=== PATIENT | male | born 1945 | race Caucasian/White ===

== ENCOUNTER → 2018-02-11 | Outpatient (CLI) | payer OTHER, BC | LOC: CIMAGING 16:25 | PROVIDERS: ATTEND Registered Nurse | DX: R05 Cough (principal); J98.11 Atelectasis; J98.6 Disorders of diaphragm | CPT/HCPCS: 71046-PO ==

== ENCOUNTER 2018-02-14 14:26 | Emergency (ER) | payer OTHER, BC ==
[2018-02-14 14:52] VITALS: RESP 16
--- NOTE | 2018-02-14 15:14 | EDPHY ---
H & P Stated Complaint: cough Time Seen by Provider: 02/14/18 14:57 HPI/ROS: CHIEF COMPLAINT: Cough, runny nose, fever HISTORY OF PRESENT ILLNESS: Patient is a 72-year-old healthy man who comes to the emergency department complaining of a cough, runny nose and fever. He states that on the of this month he began having a cough productive of clear mucus. 2 days ago he presented to his primary care at [facility] he took a chest x-ray that was clear. They put him on inhaled steroids. He is not supposed to have stimulants or decongestants because he has a propensity towards AFib. They told him that if he developed a fever to call back. Today he woke up and had a fever of 101 and also some sinus symptoms he had not had previously. He also felt a humm in his chest when he was breathing. He decided to come to the ER. He denies chest pain. He denies shortness of breath. No nausea vomiting or GI symptoms. REVIEW OF SYSTEMS: Constitutional: denies: chills, fever, recent illness, recent injury EENTM: denies: blurred vision, double vision, nose congestion Respiratory: See HPI Cardiac: denies: chest pain, irregular heart rate, lightheadedness, palpitations Gastrointestinal/Abdominal: denies: abdominal pain, diarrhea, nausea, vomiting, blood streaked stools Genitourinary: denies: dysuria, frequency, hematuria, pain Musculoskeletal: denies: joint pain, muscle pain Skin: denies: lesions, rash, jaundice, bruising Neurological: denies: headache, numbness, paresthesia, tingling, dizziness, weakness Hematologic/Lymphatic: denies: blood clots, easy bleeding, easy bruising Immunologic/allergic: denies: HIV/AIDS, transplant EXAM: GENERAL: Well-appearing, well-nourished and in no acute distress. HEAD: Atraumatic, normocephalic. EYES: Pupils equal round and reactive to light, extraocular movements intact, sclera anicteric, conjunctiva are normal. ENT: TMs normal, nares patent, oropharynx clear without exudates. Moist mucous membranes. NECK: Normal range of motion, supple without lymphadenopathy or JVD. LUNGS: Right lower lobe rhonchi, no wheezing HEART: Regular rate and rhythm without murmurs, rubs or gallops. ABDOMEN: Soft, nontender, normoactive bowel sounds. No guarding, no rebound. No masses appreciated. BACK: No CVA tenderness, no spinal tenderness, step-offs or deformities EXTREMITIES: Normal range of motion, no pitting or edema. No clubbing or cyanosis. NEUROLOGICAL: Cranial nerves II through XII grossly intact. Normal speech, normal gait. 5/5 strength, normal movement in all extremities, normal sensation PSYCH: Normal mood, normal affect. SKIN: Warm, dry, normal turgor, no visible rashes or lesions. Source: Patient Exam Limitations: No limitations - Personal History Current Tetanus Diphtheria and Acellular Pertussis (TDAP): Unsure - Medical/Surgical History Hx Asthma: No Hx Chronic Respiratory Disease: No Hx Diabetes: No Hx Cardiac Disease: No Hx Renal Disease: No Hx Cirrhosis: No Hx Alcoholism: No Hx HIV/AIDS: No Hx Splenectomy or Spleen Trauma: No Other PMH: htn - Family History Significant Family History: No pertinent family hx - Social History Smoking Status: Never smoked Alcohol Use: Sober Drug Use: None Constitutional: Initial Vital Signs Temperature (C) 36.4 C 02/14/18 14:47 Heart Rate 113 H 02/14/18 14:47 Respiratory Rate 16 02/14/18 14:47 Blood Pressure 135/94 H 02/14/18 14:47 O2 Sat (%) 92 02/14/18 14:47 O2 Delivery Mode Room Air Allergies/Adverse Reactions: ampicillin Allergy (Verified 02/14/18 14:52) Beta-Blockers (Beta-Adrenergic Bloc Allergy (Verified 02/14/18 14:52) Home Medications: Medication Instructions Recorded Buspar (*) 02/14/18 Lotrel 5-40 mg 02/14/18 Promethazine HCl/Codeine 5 ml PO Q4-6PRN PRN #90 ml 02/14/18 [Prometh-Codein 6.25-10 mg/5 ml] Simvastatin 02/14/18 Sulfamethox/Tmp 800/160 mg 1 tab PO BID #14 tab 02/14/18 [Bactrim Ds] Medical Decision Making - Diagnostics Imaging Results: Imaging Impressions Chest X-Ray 02/14/18 15:12 Impression: 1. No pneumonia. 2. ? Right diaphragm paralysis, new since 2008. Imaging: Discussed imaging studies w/ production hand Radiologist ED Course/Re-evaluation: 4:25 p.m. we discussed the x-ray and lab results. The patient is reassured. He will have his primary doctor follow up with the elevated hemidiaphragm. Also with his spine doctor. He has had lumbar fusions and occasionally has some neck pain. He is requesting sulfa antibiotics and states that these usually worked best for him. He states that is Z-Josh does not work. He is allergic to amoxicillin. He would also like a cough syrup. He is also requesting that we call them into the [facility] [place]. Patient is otherwise well-appearing. We discussed indications for returning. Differential Diagnosis: Partial list of the Differential diagnosis considered include but were not limited to; bronchitis, pneumonia and although unlikely based on the history and physical exam, I also considered PE, asthma, acute coronary disease. I discussed these differential diagnoses and the plan with the patient as well as the usual and expected course. The patient understands that the diagnosis is provisional and that in medicine we are not always correct and that further workup is often warranted. Usual and customary warnings were given. All of the patient's questions were answered. The patient was instructed to return to the emergency department should the symptoms at all worsen or return, otherwise to followup with the physician as we discussed. - Data Points Laboratory Results: 02/14/18 15:30 Nasal Influenza A PCR NEGATIVE FOR FLU A (NEGATIVE) Nasal Influenza B PCR NEGATIVE FOR FLU B (NEGATIVE) Departure - Departure Disposition: Home, Routine, Self-Care Clinical Impression: Bronchitis Condition: Fair Instructions: Acute Bronchitis (ED) Referrals: Wu Torres MD [Primary Care Provider] - 3-4 days, if not improved Prescriptions: Promethazine HCl/Codeine [Prometh-Codein 6.25-10 mg/5 ml] 5 ml PO Q4-6PRN PRN # 90 ml PRN Reason: Cough, Moderate Sulfamethox/Tmp 800/160 mg [Bactrim Ds] 1 tab PO BID #14 tab
[2018-02-14 16:47] VITALS: BP 128/89; PULSE 95; TEMP 97.9; O2SAT 96
== END 2018-02-14 16:44 | disposition home or self-care (01) ==
DX: J20.9 Acute bronchitis, unspecified (principal); I10 Essential (primary) hypertension

== ENCOUNTER → 2018-05-25 | Outpatient (CLI) | payer OTHER, BC | LOC: FIMAGING 12:29 | PROVIDERS: ATTEND Internal Medicine Critical Care Medicine | DX: J98.6 Disorders of diaphragm (principal); J98.11 Atelectasis ==